=== PATIENT | male | born 1970 | race Caucasian/White ===

== ENCOUNTER → 2017-10-09 | Emergency (ER) | payer SELFPAY ==
[~2017-10-09] VITALS: Ht 170.2 cm; Wt 71.0 kg
[~2017-10-09] MED LIST: VISCOUS LIDOCAINE 2% 15 ML UDC MM PRN
[2017-10-09 19:04] VITALS: BP 122/65
== END ==
LOC: EDSEX 15:09 → ER 21:28
DX: J03.90 Acute tonsillitis, unspecified (principal); R09.89 Other specified symptoms and signs involving the circulatory and respiratory systems
CPT/HCPCS: 70360; 99284